=== PATIENT | male | born 1980 | race Native Hawaiian/Other Pacific Islander ===

== ENCOUNTER 2020-10-01 13:23 | Emergency (ER) | payer OTHER ==
[~2020-10-01] VITALS: Ht 175.3 cm; Wt 95.5 kg
[2020-10-01 14:10] LABS: HEMATOCRIT 47.1 % (42.0-52.0); HEMOGLOBIN 15.5 g/dl (13.5-17.5); MEAN CORPUSCULAR HEMOGLOBIN 30.5 pg (27.0-33.0); MEAN CORPUSCULAR HGB CONC 32.9 g/dl (32.0-36.5); MEAN CORPUSCULAR VOLUME 92.5 fl (80.0-96.0); PLATELET COUNT, AUTOMATED 289 10^3/uL (150-450); RED BLOOD COUNT 5.09 10^6/uL (4.30-6.10); WHITE BLOOD COUNT 5.4 10^3/uL (4.0-10.0)
[2020-10-01 14:49] LABS: AMPHETAMINES LEVEL URINE NEGATIVE (NEGATIVE); BARBITURATES URINE NEGATIVE (NEGATIVE); BENZODIAZEPINES URINE NEGATIVE (NEGATIVE); CANNABINOIDS URINE NEGATIVE (NEGATIVE); COCAINE METABOLITE URINE NEGATIVE (NEGATIVE); METHADONE URINE NEGATIVE (NEGATIVE); OPIATES URINE NEGATIVE (NEGATIVE); PHENCYCLIDINE URINE NEGATIVE (NEGATIVE)
[2020-10-01 14:53] LABS: ACETAMINOPHEN LEVEL < 2.0 UG/ML (10.0-30.0); ALT/SGPT 55 U/L (12-78); BILIRUBIN,DIRECT 0.2 MG/DL (0.0-0.2); BILIRUBIN,TOTAL 0.6 MG/DL (0.2-1.0); BLOOD UREA NITROGEN 14 MG/DL (7-18); CARBON DIOXIDE LEVEL 30 MEQ/L (21-32); CHLORIDE LEVEL 107 MEQ/L (98-107); ETHYL ALCOHOL (ETHANOL) < 0.003 % (0.000-0.010); GLOMERULAR FILTRATION RATE > 60.0 (>60); GLUCOSE, FASTING 112 MG/DL (70-100); POTASSIUM SERUM 3.8 MEQ/L (3.5-5.1); SALICYLATE LEVEL < 1.7 MG/DL (5.0-30.0); SODIUM LEVEL 140 MEQ/L (136-145); TOTAL PROTEIN 7.6 GM/DL (6.4-8.2)
--- OUTSIDE RECORDS SUMMARY | 2020-10-01 15:16 | CCD ---
Author Author [facility] Organization [facility] Address Unknown Phone Unavailable Care Team Providers Care Operator Specialist Communications Name Role Phone TAJ, JILL TRUDY Unavailable Unavailable Re-disclosure Warning The records that you are about to access may contain information from federally-assisted alcohol or drug abuse programs. If such information is present, then the following federally mandated warning applies: This information has been disclosed to you from records protected by federal confidentiality rules (42 CFR part 2). The federal rules prohibit you from making any further disclosure of this information unless further disclosure is expressly permitted by the written consent of the person to whom it pertains or as otherwise permitted by 42 CFR part 2. A general authorization for the release of medical or other information is NOT sufficient for this purpose. The Federal rules restrict any use of the information to criminally investigate or prosecute any alcohol or drug abuse patient.The records that you are about to access may contain highly sensitive health information, the redisclosure of which is protected by Article 27-F of the [facility] Public Health law. If you continue you may have access to information: Regarding HIV / AIDS; Provided by facilities licensed or operated by the [facility] Office of Mental Health; or Provided by the [facility] Office for People With Developmental Disabilities. If such information is present, then the following [facility] mandated warning applies: This information has been disclosed to you from confidential records which are protected by state law. State law prohibits you from making any further disclosure of this information without the specific written consent of the person to whom it pertains, or as otherwise permitted by law. Any unauthorized further disclosure in violation of state law may result in a fine or skilled nursing sentence or both. A general authorization for the release of medical or other information is NOT sufficient authorization for further disc losure. Encounters Encounter Providers Location Date Indications Data Source(s ) Outpatient Attender: TRUDY VANG 020 01:45:00 PM [facility] - 08/19/2020 02:45:00 PM [facility] Insurance Providers Payer name Policy type / Coverage type Policy ID Covered green party ID Covered green party's relationship to kerr Policy Kerr Plan Information [facility] [employer] [id number] SP [id number] [facility] [employer] - O/P [id number] 18 [id number] Problems, Conditions, and Diagnoses Code Display Name Description Problem Type Effective Dates Data Source(s) [id number] Other symptoms and signs involving the n ervous system Other symptoms and signs involving the nervous system Diagnosis 08/19/2020 01:45:00 PM [facility] Results ID Date Data Source [id number] 08/20/2020 09:53:00 [place] [address] PHONE: [phone] FAX: [phone] Name .................. : BENITO BEST Acct Number.................. : [id number] ROOM. ................. : Number ................... : [id number] Stay type ............. : O/P Discharge Date......... ... : 08/19/20 Admit Date ... ...... : 08/19/20 Admit Phys .................... : TAJ GONZALEZ Date of ....... : 1980 Family Phys ................... : UNKNOWN CO Phone .................. : [phone] Age ................................ : 39 Film# .................. .:[id number] Sex ................................. : M Unsigned transcriptions are preliminary reports and do not represent a medical or legal document MRI BRAIN W/O CONTRAST [id number] COMPLETE:08/19/20 14:53 [facility] [id number] (REASON FOR PROCEDURE L SIDED HEADACHES MRI OF THE BRAIN WITHOUT CONTRAST: FINDINGS: Evidence of acute ischemic event is not seen on diffusion-weighted imaging. Space occupying mass, mass effect or midline shift is not appreciated. White matter signal abnormality on inversion recovery imaging that raises concern for multiple sclerosis or other demyelinating process is not identified. Pituitary gland pathology is not seen. There is no intracranial hemorrhage, extra-axial collection or obstructive hydrocephalus. The skull, sinuses, orbits and mastoid air cells are unremarkable. IMPRESSION: Unremarkable MRI of the brain. Electronically Reviewed and Signed By Tremayne Ruiz MD , 08/20/20 09:53, [facility] Transcribe Initials: HALIMA , Transcribe Date: 08/20/20 00:03, Dictation Date: Copy for: TAJ MELCHOR Copy for: [address] [place] [address] REC Page 1 of 1 Name Value Range Interpretation Code Description Data Julita rce(s) Supporting Document(s) Procedure
[2020-10-02 01:12] VITALS: BP 143/99
--- NOTE | 2020-10-02 08:52 | ECGEPIP ---
[facility] - ED Test Date: 2020-10-01 Pat Name: ESTEPHANIA OLIVER Department: Room: - Gender: Male [employer] System Administrator: lr : 1980 Requested By: MAURILIO Campos Order Number: [id number] Reading MD: Francisco Javier Stover Measurements Intervals [place] Rate: 47 P: 43 VT: 177 QRS: 35 QRSD: 102 T: 33 QT: 435 QTc: 388 Interpretive Statements SINUS BRADYCARDIA WITH SINUS ARRHYTHMIA NO PRIORS FOR COMPARISON Electronically Signed on 10-02-2020 8:52:02 EST by Francisco Javier Stover
== END 2020-10-02 01:16 ==
LOC: M ED 13:23
DX: R45.851 Suicidal ideations (principal); Z91.5 Personal history of self-harm
CPT/HCPCS: 36415; 80048; 80076; 80307; 84443; 85027; 87486; 87581; 87633; 87798; 93005; 99284; G0480